=== PATIENT | female | born 1985 | race Caucasian/White ===

== ENCOUNTER 2019-06-24 12:16 | Emergency (ER) | payer OTHER ==
[2019-06-24] MEDS ORDERED: dexAMETHasone 10 MG/ML VIAL ONE (13:01)
[2019-06-24] MEDS ORDERED: MORPHINE 4 MG/ML SYR ONE (13:02)
[2019-06-24] MEDS ORDERED: ONDANSETRON 4 MG/2 ML VIAL ONE (13:02)
[2019-06-24 13:16] LABS: Absolute Lymphocytes (CBC) 2.2 K/uL (0.7-4.9); Basophils % 0.5 % (0-1.3); Hematocrit 39.8 % (36.0-45.0); Lymphocytes % 29.5 % (15.3-44.8); MPV 7.4 fL (7.6-11.3); RBC Red Blood Cell Count 4.73 M/uL (3.86-4.86)
[2019-06-24 13:23] LABS: Potassium 3.9 mmol/L (3.5-5.1)
[2019-06-24] MEDS ORDERED: MEPERIDINE HCL 25 MG/0.5 ML ONE (13:50)
--- NOTE | 2019-06-24 16:17 | ER ---
Nurse's Notes [facility] Name: Jackie Ashley Age: 33 yrs Sex: Female : 1985 Arrival Date: 06/24/2019 Time: 12:29 Bed 23 Private MD: Diagnosis: Radiculopathy, cervical region Presentation: 06/24 12:40 Presenting complaint: Patient states: Right shoulder pain that started 2 weeks ago on wh and off. Pt states she has Hx of C4, C5, and C6 narrowing. Pt states pain is 10/10 on a pain scale. Transition of care: patient was not received from another setting of care. Onset of symptoms was June 24, 2019. Risk Assessment: Do you want to hurt yourself or someone else? Patient reports no desire to harm self or others. Initial Sepsis Screen: Does the patient meet any 2 criteria? No. Patient's initial sepsis screen is negative. Does the patient have a suspected source of infection? No. Patient's initial sepsis screen is negative. Care prior to arrival: None. 12:40 Method Of Arrival: EMS: [facility] 12:40 Acuity: ANITHA 3 Triage Assessment: 12:52 General: Appears in no apparent distress. uncomfortable. General: Behavior is calm, wh cooperative, appropriate for age. Pain: Complains of pain in Right shoulder Pain does not radiate. Pain currently is 10 out of 10 on a pain scale. Quality of pain is described as burning, Pain began On and off for 2 weeks. 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 - Social history:: Smoking status: Patient/guardian denies using tobacco. - Ebola Screening: : Patient negative for fever greater than or equal to 101.5 degrees Fahrenheit, and additional compatible Ebola Virus Disease symptoms Patient denies exposure to infectious person. - Family history:: not pertinent. - Hospitalizations: : No recent hospitalization is reported. Screenin:42 Abuse screen: Denies threats or abuse. Denies injuries from another. Nutritional screening: No deficits noted. Tuberculosis screening: No symptoms or risk factors identified. Fall Risk None identified. Assessment: 12:54 General: Appears in no apparent distress. uncomfortable, Behavior is calm, cooperative, wh appropriate for age. Neuro: Level of Consciousness is awake, alert, obeys commands. Cardiovascular: Heart tones S1 S2. Respiratory: Airway is patent Respiratory effort is even, unlabored, Respiratory pattern is regular, symmetrical, Breath sounds are clear bilaterally. GI: Abdomen is flat, non-distended. : No signs and/or symptoms were reported regarding the genitourinary system. EENT: No signs and/or symptoms were reported regarding the EENT system. Derm: Skin is intact, is healthy with good turgor, Skin is pink, warm \T\ dry. normal. Musculoskeletal: Circulation, motion, and sensation intact. 13:56 Reassessment: Patient appears in no apparent distress at this time. No changes from previously documented assessment. Patient and/or family updated on plan of care and expected duration. Pain level reassessed. Patient is alert, oriented x 3, equal unlabored respirations, skin warm/dry/pink. 15:10 Reassessment: Patient appears in no apparent distress at this time. No changes from wh previously documented assessment. Patient and/or family updated on plan of care and expected duration. Pain level reassessed. Patient is alert, oriented x 3, equal unlabored respirations, skin warm/dry/pink. Patient states feeling better. Patient states symptoms have improved. 16:34 Reassessment: Patient appears in no apparent distress at this time. No changes from previously documented assessment. Patient and/or family updated on plan of care and expected duration. Pain level reassessed. Patient is alert, oriented x 3, equal unlabored respirations, skin warm/dry/pink. Patient states feeling better. Patient states symptoms have improved. Vital Signs: 12:43 BP 156 / 119; Pulse 117; Resp 18; Temp 98.5; Pulse Ox 100% ; wh 13:45 BP 146 / 122; Pulse 133; Resp 18; Pulse Ox 98% on R/A; wh 14:45 BP 139 / 107; Pulse 118; Resp 18; Pulse Ox 96% on R/A; wh 16:30 BP 129 / 118; Pulse 110; Resp 18; Pulse Ox 94% on R/A; ED Course: 12:29 Patient arrived in ED. rn 12:29 Keith Grey MD is Attending Physician. rn 12:31 David June is Primary Nurse. 12:42 Triage completed. 12:54 Arm band placed on left wrist. 12:55 Initial lab(s) drawn, by me, sent to lab. Inserted saline lock: 22 gauge in left tm3 antecubital area, using aseptic technique. 12:57 Patient has correct armband on for positive identification. Bed in low position. Call light in reach. Side rails up X 1. Pulse ox on. NIBP on. 13:31 EKG done, by field technical assistant. reviewed by Keith Grey MD. at1 16:34 No provider procedures requiring assistance completed. IV discontinued, intact, bleeding controlled, No redness/swelling at site. Administered Medications: 13:09 Drug: Decadron - Dexamethasone 10 mg Route: IVP; Site: left antecubital; 16:36 Follow up: Response: No adverse reaction 13:09 Drug: morphine 4 mg Route: IVP; Site: left antecubital; 16:36 Follow up: Response: No adverse reaction 16:36 Follow up: Response: No adverse reaction; Pain is decreased; RASS: Alert and Calm (0) 13:09 Drug: Zofran 4 mg Route: IVP; Site: left antecubital; 16:36 Follow up: Response: No adverse reaction 13:52 Drug: Demerol 25 mg Route: IVP; Site: left antecubital; 16:37 Follow up: Response: No adverse reaction; Pain is decreased; RASS: Alert and Calm (0) Outcome: 16:16 Discharge ordered by . rn 16:35 Discharged to home ambulatory, with family. 16:35 Condition: good 16:35 Discharge instructions given to patient, Instructed on discharge instructions, follow up and referral plans. no drinking with medication, no driving heavy equipment, medication usage, POC Cervical Radiculopathy Demonstrated understanding of instructions, follow-up care, medications, POC Prescriptions given X 3. 16:38 Patient left the ED. Signatures: Mohit Caputo tm3 Keith Grey MD MD rn Gonzales, Amanda, automotive professional EKG Tat1 David June
--- NOTE | 2019-06-24 16:18 | EDPHYS ---
Physician Documentation [facility] Name: Jackie Ashley Age: 33 yrs Sex: Female : 1985 Arrival Date: 06/24/2019 Time: 12:29 Bed 23 Private MD: ED Physician Keith Grey HPI: 06/24 12:56 This 33 yrs old Other Female presents to ER via EMS with complaints of arm pain. rn 12:57 The patient or guardian complains of pain. right shoulder and right trapezius. rn 12:57 Onset: The symptoms/episode began/occurred 2 week(s) ago. Modifying factors: the rn symptoms are alleviated by nothing. The symptoms are aggravated by movement. Severity of symptoms: At their worst the symptoms were moderate, in the emergency department the symptoms are unchanged. The patient has experienced similar episodes in the past. Reports has known cervical spine problems, has been recommended to have surgery, has declined, also has RA. Reports right shoulder pain intermittent for 2 weeks, worse when turning head certain directions. Has had this before. NO chest pain/sob/abd pain. No weakness.. 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 - Social history:: Smoking status: Patient/guardian denies using tobacco. - Ebola Screening: : Patient negative for fever greater than or equal to 101.5 degrees Fahrenheit, and additional compatible Ebola Virus Disease symptoms Patient denies exposure to infectious person. - Family history:: not pertinent. - Hospitalizations: : No recent hospitalization is reported. ROS: 12:57 Constitutional: Negative for fever, chills, and weight loss, Eyes: Negative for injury, rn pain, redness, and discharge, Neck: Negative for injury, and swelling, Cardiovascular: Negative for chest pain, palpitations, and edema, Respiratory: Negative for shortness of breath, cough, wheezing, and pleuritic chest pain, Abdomen/GI: Negative for abdominal pain, nausea, vomiting, diarrhea, and constipation, MS/Extremity: + right arm and shoulder pain Skin: Negative for injury, rash, and discoloration, Neuro: Negative for headache, weakness, numbness, tingling, and seizure. Exam: 12:59 Constitutional: This is a well developed, well nourished patient who is awake, alert, rn appears uncomfortable Head/Face: Normocephalic, atraumatic. Eyes: Pupils equal round and reactive to light, extra-ocular motions intact. Lids and lashes normal. Conjunctiva and sclera are non-icteric and not injected. Cornea within normal limits. Periorbital areas with no swelling, redness, or edema. ENT: MMM Neck: No swelling or edema, no masses, + some pain with ROM Cardiovascular: Tachycardic, regular, equal pulses in all extremities Respiratory: Lungs have equal breath sounds bilaterally, clear to auscultation. No increased work of breathing, no retractions or nasal flaring. Abdomen/GI: soft, non-tender MS/ Extremity: Pulses equal, no cyanosis. Neurovascular intact. Full, normal range of motion. Equal circumference. Neuro: Awake and alert, GCS 15, oriented to person, place, time, and situation. Cranial nerves II-XII grossly intact. Motor strength 5/5 in all extremities. Sensory grossly intact. Vital Signs: 12:43 BP 156 / 119; Pulse 117; Resp 18; Temp 98.5; Pulse Ox 100% ; wh 13:45 BP 146 / 122; Pulse 133; Resp 18; Pulse Ox 98% on R/A; wh 14:45 BP 139 / 107; Pulse 118; Resp 18; Pulse Ox 96% on R/A; wh 16:30 BP 129 / 118; Pulse 110; Resp 18; Pulse Ox 94% on R/A; wh MDM: 12:29 Patient medically screened. rn 16:13 Differential diagnosis: radiculopathy, muscle spasm. Data reviewed: vital signs, nurses rn notes, diagnostic data from outside facility, MRI, lab test result(s), and as a result, I will discharge patient. Counseling: I had a detailed discussion with the patient and/or guardian regarding: the historical points, exam findings, and any diagnostic results supporting the discharge/admit diagnosis, lab results, radiology results, the need for outpatient follow up, to return to the emergency department if symptoms worsen or persist or if there are any questions or concerns that arise at home. Response to treatment: the patient's symptoms have markedly improved after treatment, and as a result, I will discharge patient. Special discussion: I discussed with the patient/guardian in detail that at this point there is no indication for admission to the hospital. It is understood, however, that if the symptoms persist or worsen the patient needs to return immediately for re-evaluation. Based on the history and exam findings, there is no indication for further emergent testing or inpatient evaluation. I discussed with the patient/guardian the need to see the orthopedic surgeon for further evaluation of the symptoms. I discussed with the patient/guardian the need to see the primary care provider for further evaluation of the symptoms. ED course: Patient improved, now 2/10 pain, states this has been ongoing, slowly worsening, no weakness, has had shots for this and seen neurosurgery and PT. Will dc home, return precautions given and understood. . 06/24 12:33 Order name: CBC with Diff; Complete Time: 13:41 rn 06/24 12:33 Order name: Basic Metabolic Panel; Complete Time: 13:41 rn 06/24 12:33 Order name: IV Start; Complete Time: 12:51 rn 06/24 12:57 Order name: EKG; Complete Time: 12:58 rn 06/24 12:57 Order name: EKG - Nurse/Tech; Complete Time: 13:21 rn Administered Medications: 13:09 Drug: Decadron - Dexamethasone 10 mg Route: IVP; Site: left antecubital; 16:36 Follow up: Response: No adverse reaction 13:09 Drug: morphine 4 mg Route: IVP; Site: left antecubital; 16:36 Follow up: Response: No adverse reaction 16:36 Follow up: Response: No adverse reaction; Pain is decreased; RASS: Alert and Calm (0) 13:09 Drug: Zofran 4 mg Route: IVP; Site: left antecubital; 16:36 Follow up: Response: No adverse reaction 13:52 Drug: Demerol 25 mg Route: IVP; Site: left antecubital; 16:37 Follow up: Response: No adverse reaction; Pain is decreased; RASS: Alert and Calm (0) Disposition: 06/24/19 16:16 Discharged to Home. Impression: Radiculopathy, cervical region. - Condition is Stable. - Discharge Instructions: Cervical Radiculopathy. - Prescriptions for Tylenol- Codeine #3 300-30 mg Oral Tablet - take 2 tablets by ORAL route every 6 hours As needed; 20 tablet. Cyclobenzaprine 10 mg Oral Tablet - take 1 tablet by ORAL route every 8 hours As needed; 20 tablet. Medrol (Dinesh) 4 mg Oral Tablets, Dose Pack - take 1 tablet by ORAL route as directed - follow package instructions; 1 packet. - Medication Reconciliation Form, Thank You Letter, Antibiotic Education, Prescription Opioid Use form. - Follow up: Private Physician; When: As needed; Reason: Recheck today's complaints, Re-evaluation by your physician. - Problem is new. - Symptoms have improved. 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 [employer] EDMS Keith Grey MD MD rn Habalo, Winsy Corrections: (The following items were deleted from the chart) 13:00 12:57 Constitutional: Negative for fever, chills, and weight loss, Eyes: Negative for rn injury, pain, redness, and discharge, Neck: Negative for injury, and swelling, Cardiovascular: Negative for chest pain, palpitations, and edema, Respiratory: Negative for shortness of breath, cough, wheezing, and pleuritic chest pain, Abdomen/GI: Negative for abdominal pain, nausea, vomiting, diarrhea, and constipation, MS/Extremity: + right arm and shoulder pain Skin: Negative for injury, rash, and discoloration, Neuro: Negative for headache, weakness, numbness, tingling, and seizure, rn 16:38 16:16 06/24/2019 16:16 Discharged to Home. Impression: Radiculopathy, cervical region. Condition is Stable. Forms are Medication Reconciliation Form, Thank You Letter, Antibiotic Education, Prescription Opioid Use. Follow up: Private Physician; When: As needed; Reason: Recheck today's complaints, Re-evaluation by your physician. Problem is new. Symptoms have improved. rn
[2019-06-24 17:09] VITALS: BP 131/80; TEMP 98; O2SAT 100
--- NOTE | 2019-06-24 20:19 | EKG ---
Test Date: 2019-06-24 Test Time: 13:25:21 First Officer: BERT MEASUREMENT RESULTS: Intervals: Rate: 130 IA: 154 QRSD: 76 QT: 290 QTc: 426 Lyons: P: 85 IA: 154 QRS: 86 T: 81 INTERPRETIVE STATEMENTS: Sinus tachycardia Right atrial enlargement Borderline ECG No previous ECG available for comparison Electronically Signed On 06-24-19 20:18:17 CDT by Markus Perdomo
== END 2019-06-24 16:38 | disposition home or self-care (01) ==
LOC: ER 12:16
DX: M54.12 Radiculopathy, cervical region (principal)
CPT/HCPCS: 93005; 85025; 80048; 36415; 96375; 96374; 99284; J1100; J2175; J2405

== ENCOUNTER 2019-07-01 14:42 | Emergency (ER) | payer OTHER ==
[2019-07-01] MEDS ORDERED: ONDANSETRON 4 MG/2 ML VIAL ONE ×2 (14:54→19:49)
[2019-07-01] MEDS ORDERED: MORPHINE 4 MG/ML SYR ONE ×2 (14:54→15:32)
[2019-07-01] MEDS ORDERED: DIAZEPAM 10 MG/2 ML INJ SYRINGE ONE (14:58)
[2019-07-01 15:16] LABS: Absolute Lymphocytes (CBC) 2.8 K/uL (0.7-4.9); Basophils % 0.3 % (0-1.3); Hematocrit 41.4 % (36.0-45.0); Lymphocytes % 22.5 % (15.3-44.8); MPV 7.3 fL (7.6-11.3); RBC Red Blood Cell Count 4.84 M/uL (3.86-4.86)
[2019-07-01 15:27] LABS: Potassium 3.5 mmol/L (3.5-5.1)
--- NOTE | 2019-07-01 15:48 | RAD REPORT ---
EXAM DESCRIPTION: RAD - Shoulder Right 2 View - 07/01/2019 3:37 pm CLINICAL HISTORY: Right shoulder pain FINDINGS: No fracture or dislocation is seen. No significant bone or joint abnormality noted
[2019-07-01] MEDS ORDERED: NA CHLORIDE 0.9% 1,000 ML ONE (16:07)
--- NOTE | 2019-07-01 18:38 | RAD REPORT ---
EXAM DESCRIPTION: MRI - C Spine Wo Cont - 07/01/2019 6:09 pm CLINICAL HISTORY: Radiculopathy and neck pain COMPARISON: None TECHNIQUE: Magnetic resonance imaging of the cervical spine was obtained with coronal and sagittal r econstruction FINDINGS: Mild spondylosis C2-3 Disc bulge and osteophytes C3-4 mildly encroach upon the thecal sac. Mild to moderate narrowing of th e left and mild narrowing of the right neural foramina Disc bulge osteophytes C4-5 mildly encroach upon the thecal sac. Moderate narrowing of the neural for adarsh bilaterally. A small right posterolateral disc osteophyte complex Disc bulge and osteophytes C5-6. Marked narrowing of the left and mild to moderate narrowing the righ t neural foramina. A small left posterolateral disc osteophyte complex Disc bulge and osteophytes at C6-7 results in mild to moderate narrowing of the right neural foramina C7-T1 unremarkable The spinal cord is normal caliber and signal. No abnormal signal within the bones is noted. IMPRESSION: Spondylosis in combination with small left posterolateral disc osteophyte complex C5-6 resulting in marked left foraminal stenosis Spondylosis in combination with a small right posterolateral disc osteophyte complex C4-5 resulting i n moderate bilateral foraminal stenosis
[2019-07-01] MEDS ORDERED: HYDROCODONE/APAP 10/325 TAB ONE (18:41)
--- NOTE | 2019-07-01 19:45 | ER ---
Nurse's Notes [facility] Name: Jackie Ashley Age: 33 yrs Sex: Female : 1985 Arrival Date: 07/01/2019 Time: 14:44 Bed 30 Private MD: Diagnosis: Radiculopathy, cervical region;Strain of muscle, fascia and tendon at neck level Presentation: 07/01 14:38 Presenting complaint: EMS states: pt was at the [place] [facility] for psychiatric help and then sv started c/o neck/arm, chest pain, right facial numbness since Thursday, generalized weakness since Thursday. BP 233/133 HR 160s. Last BP 159/115 EKG-140. [facility]. Onset of symptoms was July 01, 2019. Risk Assessment: Do you want to hurt yourself or someone else? Patient reports no desire to harm self or others. Initial Sepsis Screen: Does the patient meet any 2 criteria? HR > 90 bpm. No. Patient's initial sepsis screen is negative. Does the patient have a suspected source of infection? No. Patient's initial sepsis screen is negative. Care prior to arrival: Medication(s) given: Toradol 60 mg, Kenalog 40 mg, Solumedrol 125 mg IM given. 14:38 Method Of Arrival: EMS: [facility] sv 14:44 Acuity: ANITHA 2 sv Triage Assessment: 14:40 General: Appears distressed, uncomfortable, well developed, Behavior is cooperative, sv anxious. Pain: Complains of pain in back of neck, face and right arm and right shoulder Pain currently is 10 out of 10 on a pain scale. Neuro: Level of Consciousness is awake, alert, obeys commands, Oriented to person, place, time, situation, Moves all extremities. Full function Speech is normal, Facial symmetry appears normal, Reports headache in entire numbness in right zygomatic area and right cheek since Thursday. Cardiovascular: Patient's skin is warm and dry. Pulses are 3+ in right radial artery and left radial artery Rhythm is sinus tachycardia. Respiratory: Airway is patent Respiratory effort is even, unlabored, Respiratory pattern is symmetrical, tachypnea. Derm: Skin is intact, Skin is pink, warm \T\ dry. Musculoskeletal: Range of motion: limited in right shoulder. 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 - Social history:: Smoking status: unknown. - Ebola Screening: : Patient denies travel to an Ebola-affected area in the 21 days before illness onset No symptoms or risks identified at this time. Screenin:55 Abuse screen: Denies threats or abuse. Denies injuries from another. Nutritional sv screening: No deficits noted. Tuberculosis screening: No symptoms or risk factors identified. Fall Risk None identified. Assessment: 15:40 Reassessment: Pt able to get herself up off the bed and ambulate to the bathroom sv slowly, no walking difficulty noted. 15:54 Reassessment: Patient appears in no apparent distress at this time. No changes from sv previously documented assessment. Patient and/or family updated on plan of care and expected duration. Pain level reassessed. Patient is alert, oriented x 3, equal unlabored respirations, skin warm/dry/pink. 16:25 Reassessment: Patient appears in no apparent distress at this time. No changes from sv previously documented assessment. Patient and/or family updated on plan of care and expected duration. Pain level reassessed. Patient is alert, oriented x 3, equal unlabored respirations, skin warm/dry/pink. 17:16 Reassessment: Patient appears in no apparent distress at this time. Patient and/or sv family updated on plan of care and expected duration. Pain level reassessed. Patient is alert, oriented x 3, equal unlabored respirations, skin warm/dry/pink. Spouse at the bedside. 19:00 Reassessment: PATIENT IS IN A LOT OF PAIN. REFERRED TO DR LIU. rv 21:00 Reassessment: Patient appears in no apparent distress at this time. Patient and/or rv family updated on plan of care and expected duration. Pain level reassessed. Patient is alert, oriented x 3, equal unlabored respirations, skin warm/dry/pink. AFTER GIVING PAIN MEDICINE, PATIENT IS MORE COMFORTABLE AND BLOOD PRESSURE HAS DECREASED TO A MORE ACCEPTABLE RANGE. 07/02 00:00 Reassessment: Patient appears in no apparent distress at this time. PATIENT STARTING TO rv HAVE PAINS AGAIN. REFERRED TO DR LIU. GIVEN SECOND DOSE OF MORPHINE. UPDATED ON THE PLAN OF CARE AND LENGTH OF WAIT FOR TRANSFER. 01:03 Reassessment: STILL AWAITING TRANSFER TO [place]. rv 01:10 Reassessment: Patient appears in no apparent distress at this time. Patient and/or cc3 family updated on plan of care and expected duration. Pain level reassessed. Patient is alert, oriented x 3, equal unlabored respirations, skin warm/dry/pink. Received this female patient from [facility] as a case of radiculopathy cervical region awaiting acceptance from [place] for transfer. With IV cannula gauge 20 at the left ACV saline locked. 02:20 Reassessment: Patient appears in no apparent distress at this time. Patient and/or cc3 family updated on plan of care and expected duration. Pain level reassessed. Patient is alert, oriented x 3, equal unlabored respirations, skin warm/dry/pink. Patient for transfer to [place], report called and handed over to IDRIS Villarreal. ED junior accounting clerk Zane to call EMS for transport. 02:49 Reassessment: Patient came back from CT scan department by wheelchair, awaiting report. cc3 03:14 Reassessment: Patient appears in no apparent distress at this time. Patient and/or cc3 family updated on plan of care and expected duration. Pain level reassessed. Patient is alert, oriented x 3, equal unlabored respirations, skin warm/dry/pink. Called IDRIS Villarreal of [place] ER and updated her with the newly ordered medications given to patient. 04:00 Reassessment: Patient appears in no apparent distress at this time. Patient and/or cc3 family updated on plan of care and expected duration. Pain level reassessed. Patient is alert, oriented x 3, equal unlabored respirations, skin warm/dry/pink. Patient denies pain at this time. Patient states feeling better. Patient states symptoms have improved. 04:50 Reassessment: Patient appears in no apparent distress at this time. Patient and/or cc3 family updated on plan of care and expected duration. Pain level reassessed. Patient is alert, oriented x 3, equal unlabored respirations, skin warm/dry/pink. [facility] came for patient transport. Patient left ER vitally stable by EMS stretcher. No valuables left in the patient's room. Patient states feeling better. Patient states symptoms have improved. Vital Signs: 07/01 14:52 BP 162 / 102; Pulse 135 MON; Resp 27 S; Pulse Ox 100% on R/A; sg 14:55 Temp 98; sv 15:23 BP 170 / 130; Pulse 124; Resp 30; Pulse Ox 99% on R/A; sv 15:49 BP 183 / 151; Pulse 137 MON; Resp 30; Pulse Ox 99% on R/A; sv 16:25 BP 127 / 74; Pulse 129; Resp 18; Pulse Ox 100% on R/A; sv 17:13 BP 140 / 118; Pulse 122; Resp 16; Pulse Ox 100% on R/A; sv 18:31 BP 183 / 143; Pulse 113; Resp 18; Pulse Ox 100% on R/A; rv 21:00 BP 132 / 90; Pulse 113; Resp 17; Pulse Ox 98% on R/A; rv 22:00 BP 138 / 101; Pulse 110; Resp 16; Pulse Ox 100% on R/A; rv 23:00 BP 136 / 96; Pulse 121; Resp 18; Pulse Ox 100% on R/A; rv 07/02 00:00 BP 133 / 99; Pulse 118; Resp 15; Pulse Ox 100% on R/A; rv 01:00 BP 154 / 107; Pulse 119; Resp 15; Pulse Ox 100% ; rv 01:30 BP 149 / 100; Pulse 113; Resp 18 S; Pulse Ox 98% on R/A; cc3 02:20 BP 149 / 107; Pulse 119; Resp 16 S; Temp 97.7(O); Pulse Ox 100% on R/A; cc3 02:49 BP 135 / 105; Pulse 124; Resp 16 S; Pulse Ox 100% on R/A; cc3 03:08 BP 136 / 104; Pulse 97; Resp 16 S; Pulse Ox 100% on R/A; cc3 03:30 BP 134 / 96; Pulse 101; Resp 17 S; Pulse Ox 99% on R/A; cc3 03:50 BP 128 / 102; Pulse 95; Resp 16 S; Pulse Ox 100% on R/A; cc3 03:55 BP 127 / 92; Pulse 92; Resp 16 S; Pulse Ox 100% on R/A; cc3 04:00 BP 119 / 90; Pulse 86; Resp 14 S; Pulse Ox 99% on R/A; Pain 2/10; cc3 04:30 BP 124 / 101; Pulse 85; Resp 19 S; Pulse Ox 100% on R/A; cc3 15:49 Sinus tachycardia sv ED Course: 07/01 14:44 Patient arrived in ED. sv 14:44 Trini Marcelo RN is Primary Nurse. sv 14:45 Triage completed. sv 14:48 Jordin Mak MD is Attending Physician. kdr 14:50 Inserted saline lock: 20 gauge in left antecubital area, using aseptic technique. Blood sv collected. Flushed left antecubital with 5 ml normal saline. 14:50 Arm band placed on. sv 14:55 Patient has correct armband on for positive identification. Placed in gown. Bed in low sv position. Call light in reach. Side rails up X2. drywall taper on. Pulse ox on. NIBP on. Door closed. Head of bed elevated. 15:01 Chem 7 Sent. sv 15:01 CBC with Diff Sent. sv 15:38 Shoulder Right (2 View) XRAY In Process Unspecified. EDMS 15:49 EKG done, by earth science technical officer. reviewed by Jordin Mak MD. sm3 17:[address] Scan. sv 17:57 C Spine Wo Cont In Process Unspecified. EDMS 19:24 Primary Nurse role handed off by Trini Marcelo RN sv 19:31 Attending Physician role handed off by Jordin Mak MD dona 19:31 Alexei Liu MD is Attending Physician. dona 19:46 Aj Arnold RN is Primary Nurse. rv 20:46 XRAY Chest (1 view) In Process Unspecified. EDMS 07/02 01:10 Report given to AAYUSH JOSEPH. rv 02:20 No provider procedures requiring assistance completed. Patient transferred, IV remains cc3 in place. 03:02 CT Chest For PE Angio In Process Unspecified. EDMS Administered Medications: 07/01 14:55 Drug: Zofran 4 mg Route: IVP; Site: left antecubital; hb 15:35 Follow up: Response: No adverse reaction sv 14:56 Drug: morphine 4 mg Route: IVP; Site: left antecubital; hb 15:35 Follow up: Response: No adverse reaction; No change in condition; RASS: Very agitated sv (+3) 15:01 Drug: Valium 5 mg Route: IVP; Site: left antecubital; sv 15:35 Follow up: Response: No adverse reaction sv 15:35 Drug: morphine 4 mg {Note: RASS3.} Route: IVP; Site: left antecubital; sv 16:24 Follow up: Response: No adverse reaction; RASS: Restless (+1) sv 16:13 Drug: NS 0.9% 1000 ml Route: IV; Rate: 1 bolus; Site: left antecubital; sv 17:45 Follow up: Response: No adverse reaction; IV Status: Completed infusion; IV Intake: sv 1000ml 16:25 CANCELLED (Duplicate Order): NS 0.9% 1000 ml IV at 1 bolus Per protocol; 1000 mL bolus sv 18:43 Drug: [place] 10 mg-325 mg 1 tabs {Note: RASS 0.} Route: PO; rv 19:53 Drug: Decadron - Dexamethasone 10 mg Route: IVP; Site: left antecubital; rv 21:20 Follow up: Response: Marked relief of symptoms; Pain is decreased rv 19:53 Drug: Ativan 1 mg Route: IVP; Site: left antecubital; rv 21:21 Follow up: Response: No adverse reaction; Marked relief of symptoms; Pain is decreased rv 19:53 Drug: morphine 2 mg Route: IVP; Site: left antecubital; rv 21:21 Follow up: Response: No adverse reaction; Marked relief of symptoms; Pain is decreased; rv RASS: Alert and Calm (0) 19:54 Drug: Zofran 4 mg Route: IVP; Site: left antecubital; rv 21:21 Follow up: Response: No adverse reaction; Marked relief of symptoms; Pain is decreased rv 23:51 Drug: morphine 2 mg {Note: RASS 0.} Route: IVP; Site: left antecubital; rv 07/02 02:00 Drug: morphine 2 mg Route: IVP; Site: left antecubital; cc3 02:30 Follow up: Response: No adverse reaction; Pain is unchanged, physician notified cc3 02:50 Drug: Lopressor (metoprolol TARTRATE) 50 mg Route: PO; cc3 04:00 Follow up: Response: No adverse reaction cc3 02:50 Drug: NS 0.9% 1000 ml Route: IV; Rate: 125 ml/hr; Site: left antecubital; cc3 03:35 Follow up: IV Status: Infusion continued upon transfer cc3 02:55 Drug: Lopressor 5 mg Route: IVP; Site: left antecubital; cc3 04:00 Follow up: Response: No adverse reaction; Marked relief of symptoms cc3 02:58 Drug: Dilaudid 0.5 mg Route: IVP; Site: left antecubital; cc3 03:40 Follow up: Response: No adverse reaction; Pain is unchanged, physician notified cc3 03:03 Drug: Zofran 4 mg Route: IVP; Site: left antecubital; cc3 04:00 Follow up: Response: No adverse reaction; Nausea is decreased cc3 03:45 Drug: Dilaudid 0.5 mg {Note: RASS 0.} Route: IVP; Site: left antecubital; cc3 04:00 Follow up: Response: No adverse reaction; Pain is decreased; RASS: Alert and Calm (0) cc3 03:50 Drug: Lopressor 2.5 mg Route: IVP; Site: left antecubital; cc3 04:00 Follow up: Response: No adverse reaction; Blood pressure is lowered cc3 03:55 Drug: Lopressor 2.5 mg Route: IVP; Site: left antecubital; cc3 04:00 Follow up: Response: No adverse reaction; Blood pressure is lowered cc3 04:35 Drug: Aspirin 81 mg Route: PO; cc3 04:46 Follow up: Response: No adverse reaction cc3 Intake: 07/01 17:45 IV: 1000ml; Total: 1000ml. sv Outcome: 19:44 ER care complete, transfer ordered by MD. carcamo 07/02 02:20 Transferred by ground EMS to [facility] Transfer form completed. cc3 Condition: stable Instructed on the need for transfer, Demonstrated understanding of instructions. 05:04 Patient left the ED. cc3 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 [employer] Trini Carbone RN RN sv Gay, Steven, RN RN sg Anderson, Corey, MD MD cha Rittger, Kevin, MD MD kdr Baxter, Heather, RN RN hb Montes, Shakira [facility] Aj Arnold RN RN rv Cordel, Charlene cc3 Corrections: (The following items were deleted from the chart) 07/01 19:28 17:13 Pulse 122bpm; Resp 16bpm; Pulse Ox 100% RA; sv sv 07/02 05:09 04:50 Reassessment: [facility] came for patient transport. cc3 cc3
--- NOTE | 2019-07-01 19:45 | EDPHYS ---
Physician Documentation [facility] Name: Jackie Ashley Age: 33 yrs Sex: Female : 1985 Arrival Date: 07/01/2019 Time: 14:44 Bed 30 Private MD: ED Physician Alexei Alcazar HPI: 07/01 19:01 This 33 yrs old Female presents to ER via EMS with complaints of Pain, kdr Tachycardia. 19:01 The patient or guardian complains of decreased range of motion, pain, that is acute. kdr right shoulder and right trapezius. Context: The problem was sustained. The patient has had intermittent and worsening pain in her neck for the past three years and [facility] Since Thursday, after being seen by her massage therapist, she has had right facial numbness and since Thursday last, she has had weakness in her right arm and altered sensation in her arm down to her 4/5 digits. She also has altered sensation on her left arm but more significant on her second and third digits. 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 - Social history:: Smoking status: unknown. - Ebola Screening: : Patient denies travel to an Ebola-affected area in the 21 days before illness onset No symptoms or risks identified at this time. ROS: 19:01 Constitutional: Negative for fever, chills, and weight loss, Eyes: Negative for injury, kdr pain, redness, and discharge, Neck: Negative for injury, pain, and swelling, Cardiovascular: Negative for chest pain, palpitations, and edema, Respiratory: Negative for shortness of breath, cough, wheezing, and pleuritic chest pain, Abdomen/GI: Negative for abdominal pain, nausea, vomiting, diarrhea, and constipation, Back: Negative for injury and pain, : Negative for injury, bleeding, discharge, and swelling, MS/Extremity: Negative for injury and deformity, Skin: Negative for injury, rash, and discoloration, Psych: Negative for depression, anxiety, suicide ideation, homicidal ideation, and hallucinations, Allergy/Immunology: Negative for hives, rash, and allergies, Endocrine: Negative for neck swelling, polydipsia, polyuria, polyphagia, and marked weight changes, Hematologic/Lymphatic: Negative for swollen nodes, abnormal bleeding, and unusual bruising. 19:01 Neuro: Positive for numbness, weakness. Exam: 19:01 Constitutional: This is a well developed, well nourished patient who is awake, alert, kdr and in severe distress. Head/Face: Normocephalic, atraumatic. Eyes: Pupils equal round and reactive to light, extra-ocular motions intact. Lids and lashes normal. Conjunctiva and sclera are non-icteric and not injected. Cornea within normal limits. Periorbital areas with no swelling, redness, or edema. Neck: Trachea midline, no thyromegaly or masses palpated, and no cervical lymphadenopathy. Supple, full range of motion without nuchal rigidity, or vertebral point tenderness. No Meningismus. Chest/axilla: Normal chest wall appearance and motion. Nontender with no deformity. No lesions are appreciated. Cardiovascular: Regular rate and rhythm with a normal S1 and S2. No gallops, murmurs, or rubs. Normal PMI, no JVD. No pulse deficits. Respiratory: Lungs have equal breath sounds bilaterally, clear to auscultation and percussion. No rales, rhonchi or wheezes noted. No increased work of breathing, no retractions or nasal flaring. Abdomen/GI: Soft, non-tender, with normal bowel sounds. No distension or tympany. No guarding or rebound. No evidence of tenderness throughout. Back: No spinal tenderness. No costovertebral tenderness. Full range of motion. Skin: Warm, dry with normal turgor. Normal color with no rashes, no lesions, and no evidence of cellulitis. Psych: Awake, alert, with orientation to person, place and time. Behavior, mood, and affect are within normal limits. 19:01 Musculoskeletal/extremity: ROM: intact in all extremities, The patient has weakness of abduction of the right upper extremity at the shoulder. She has numbness in the right 4/5 digits. Also, has numbness to index and middle finger on right . Vital Signs: 14:52 BP 162 / 102; Pulse 135 MON; Resp 27 S; Pulse Ox 100% on R/A; sg 14:55 Temp 98; sv 15:23 BP 170 / 130; Pulse 124; Resp 30; Pulse Ox 99% on R/A; sv 15:49 BP 183 / 151; Pulse 137 MON; Resp 30; Pulse Ox 99% on R/A; sv 16:25 BP 127 / 74; Pulse 129; Resp 18; Pulse Ox 100% on R/A; sv 17:13 BP 140 / 118; Pulse 122; Resp 16; Pulse Ox 100% on R/A; sv 18:31 BP 183 / 143; Pulse 113; Resp 18; Pulse Ox 100% on R/A; rv 21:00 BP 132 / 90; Pulse 113; Resp 17; Pulse Ox 98% on R/A; rv 22:00 BP 138 / 101; Pulse 110; Resp 16; Pulse Ox 100% on R/A; rv 23:00 BP 136 / 96; Pulse 121; Resp 18; Pulse Ox 100% on R/A; rv 07/02 00:00 BP 133 / 99; Pulse 118; Resp 15; Pulse Ox 100% on R/A; rv 01:00 BP 154 / 107; Pulse 119; Resp 15; Pulse Ox 100% ; rv 01:30 BP 149 / 100; Pulse 113; Resp 18 S; Pulse Ox 98% on R/A; cc3 02:20 BP 149 / 107; Pulse 119; Resp 16 S; Temp 97.7(O); Pulse Ox 100% on R/A; cc3 02:49 BP 135 / 105; Pulse 124; Resp 16 S; Pulse Ox 100% on R/A; cc3 03:08 BP 136 / 104; Pulse 97; Resp 16 S; Pulse Ox 100% on R/A; cc3 03:30 BP 134 / 96; Pulse 101; Resp 17 S; Pulse Ox 99% on R/A; cc3 03:50 BP 128 / 102; Pulse 95; Resp 16 S; Pulse Ox 100% on R/A; cc3 03:55 BP 127 / 92; Pulse 92; Resp 16 S; Pulse Ox 100% on R/A; cc3 04:00 BP 119 / 90; Pulse 86; Resp 14 S; Pulse Ox 99% on R/A; Pain 2/10; cc3 04:30 BP 124 / 101; Pulse 85; Resp 19 S; Pulse Ox 100% on R/A; cc3 15:49 Sinus tachycardia sv MDM: 07/01 19:31 Patient medically screened. dona 19:32 Data reviewed: vital signs, nurses notes, lab test result(s), radiologic studies, MRI. [facility] 07/01 14:50 Order name: CBC with Diff; Complete Time: 16:21 [facility] 07/01 14:50 Order name: Chem 7; Complete Time: 16:21 [facility] 07/01 19:43 Order name: Magnesium; Complete Time: 21:18 [facility] 07/01 19:43 Order name: NT PRO-BNP; Complete Time: 21:18 [facility] 07/01 19:43 Order name: PT-INR; Complete Time: 02:06 [facility] 07/01 19:43 Order name: Troponin (emerg Dept Use Only); Complete Time: 21:18 [facility] 07/01 14:50 Order name: Shoulder Right (2 View) XRAY; Complete Time: 16: [facility] 07/01 16:32 Order name: C Spine Wo Cont; Complete Time: 18:59 EDMS 07/01 19:43 Order name: XRAY Chest (1 view) [facility] 07/02 02:18 Order name: CT Chest For PE Angio [facility] 07/01 17:35 Order name: EKG Electrocardiogram; Complete Time: 17:35 EDKY 07/01 19:43 Order name: Cardiac monitoring; Complete Time: 19:54 [facility] 07/01 19:43 Order name: IV Saline Lock; Complete Time: 19:54 [facility] 07/01 19:43 Order name: Labs collected and sent; Complete Time: 19:54 [facility] 07/01 19:43 Order name: O2 Per Protocol; Complete Time: 19:54 [facility] 07/01 19:43 Order name: O2 Sat Monitoring; Complete Time: 19:54 [facility] 07/01 20:33 Order name: Labs - recollect needed; Complete Time: 21:19 [facility] 07/02 04:27 Order name: EKG; Complete Time: 04:28 [facility] 07/02 04:27 Order name: EKG - Nurse/Tech; Complete Time: 04:45 [facility] Administered Medications: 14:55 Drug: Zofran 4 mg Route: IVP; Site: left antecubital; hb 15:35 Follow up: Response: No adverse reaction sv 14:56 Drug: morphine 4 mg Route: IVP; Site: left antecubital; hb 15:35 Follow up: Response: No adverse reaction; No change in condition; RASS: Very agitated sv (+3) 15:01 Drug: Valium 5 mg Route: IVP; Site: left antecubital; sv 15:35 Follow up: Response: No adverse reaction sv 15:35 Drug: morphine 4 mg {Note: RASS3.} Route: IVP; Site: left antecubital; sv 16:24 Follow up: Response: No adverse reaction; RASS: Restless (+1) sv 16:13 Drug: NS 0.9% 1000 ml Route: IV; Rate: 1 bolus; Site: left antecubital; sv 17:45 Follow up: Response: No adverse reaction; IV Status: Completed infusion; IV Intake: sv 1000ml 16:25 CANCELLED (Duplicate Order): NS 0.9% 1000 ml IV at 1 bolus Per protocol; 1000 mL bolus sv 18:43 Drug: [place] 10 mg-325 mg 1 tabs {Note: RASS 0.} Route: PO; rv 19:53 Drug: Decadron - Dexamethasone 10 mg Route: IVP; Site: left antecubital; rv 21:20 Follow up: Response: Marked relief of symptoms; Pain is decreased rv 19:53 Drug: Ativan 1 mg Route: IVP; Site: left antecubital; rv 21:21 Follow up: Response: No adverse reaction; Marked relief of symptoms; Pain is decreased rv 19:53 Drug: morphine 2 mg Route: IVP; Site: left antecubital; rv 21:21 Follow up: Response: No adverse reaction; Marked relief of symptoms; Pain is decreased; rv RASS: Alert and Calm (0) 19:54 Drug: Zofran 4 mg Route: IVP; Site: left antecubital; rv 21:21 Follow up: Response: No adverse reaction; Marked relief of symptoms; Pain is decreased rv 23:51 Drug: morphine 2 mg {Note: RASS 0.} Route: IVP; Site: left antecubital; rv 07/02 02:00 Drug: morphine 2 mg Route: IVP; Site: left antecubital; cc3 02:30 Follow up: Response: No adverse reaction; Pain is unchanged, physician notified cc3 02:50 Drug: Lopressor (metoprolol TARTRATE) 50 mg Route: PO; cc3 04:00 Follow up: Response: No adverse reaction cc3 02:50 Drug: NS 0.9% 1000 ml Route: IV; Rate: 125 ml/hr; Site: left antecubital; cc3 03:35 Follow up: IV Status: Infusion continued upon transfer cc3 02:55 Drug: Lopressor 5 mg Route: IVP; Site: left antecubital; cc3 04:00 Follow up: Response: No adverse reaction; Marked relief of symptoms cc3 02:58 Drug: Dilaudid 0.5 mg Route: IVP; Site: left antecubital; cc3 03:40 Follow up: Response: No adverse reaction; Pain is unchanged, physician notified cc3 03:03 Drug: Zofran 4 mg Route: IVP; Site: left antecubital; cc3 04:00 Follow up: Response: No adverse reaction; Nausea is decreased cc3 03:45 Drug: Dilaudid 0.5 mg {Note: RASS 0.} Route: IVP; Site: left antecubital; cc3 04:00 Follow up: Response: No adverse reaction; Pain is decreased; RASS: Alert and Calm (0) cc3 03:50 Drug: Lopressor 2.5 mg Route: IVP; Site: left antecubital; cc3 04:00 Follow up: Response: No adverse reaction; Blood pressure is lowered cc3 03:55 Drug: Lopressor 2.5 mg Route: IVP; Site: left antecubital; cc3 04:00 Follow up: Response: No adverse reaction; Blood pressure is lowered cc3 04:35 Drug: Aspirin 81 mg Route: PO; cc3 04:46 Follow up: Response: No adverse reaction cc3 Disposition: 07/01/19 19:44 Transfer ordered to [facility]. Diagnosis are Radiculopathy, cervical region, Strain of muscle, fascia and tendon at neck level. - Reason for transfer: Higher level of care. - Accepting physician is ta , cervical radiculopathy. - Condition is Fair. - Problem is new. - Symptoms have improved. 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 [employer] Triin Carbone RN RN sv Gay, Steven, RN RN sg Anderson, Corey, MD MD cha Rittger, Kevin, MD MD kdr Martinez, Eric em1 Patience Howell RN RN hb Vicente, Ronaldo, RN RN rv Cordel, Charlene cc3 Corrections: (The following items were deleted from the chart) 09/20 16:25 16:23 NS 0.9% 1000 ml IV at 1 bolus Per protocol; 1000 mL bolus ordered. kdr sv : 19:43 EKG - Nurse/Tech ordered. dona rv 07/02 05:04 07/01 19:44 07/01/2019 19:44 Transfer ordered to [facility] [address] Diagnosis is Radiculopathy, cervical region; Strain of muscle, fascia and tendon at neck level. Reason for transfer: Higher level of care. Accepting physician is ta , cervical radiculopathy. Condition is Fair. Problem is new. Symptoms have improved. dona
[2019-07-01] MEDS ORDERED: MORPHINE 2 MG/ML SYR ONE ×2 (19:49→23:48)
[2019-07-01] MEDS ORDERED: LORazepam 2 MG/ML VIAL ONE (19:49)
[2019-07-01] MEDS ORDERED: dexAMETHasone 10 MG/ML VIAL ONE (19:49)
[2019-07-01 20:47] LABS: Magnesium 2.3 mg/dL (1.8-2.4); NT PRO-BNP 24 pg/mL (<125); Troponin (Emerg Dept Use Only) < 0.02 ng/mL (0.0-0.045)
[2019-07-01 21:29] LABS: Protime INR 0.91
[2019-07-02] MEDS ORDERED: MORPHINE 2 MG/ML SYR ONE (01:58)
[2019-07-02] MEDS ORDERED: METOPROLOL TAR 50 MG TAB ONE (02:45)
[2019-07-02] MEDS ORDERED: ONDANSETRON 4 MG/2 ML VIAL ONE (02:46)
[2019-07-02] MEDS ORDERED: HYDROMORPHONE HCL 0.5 MG/0.5 ML INJ ONE ×2 (02:46→03:43)
[2019-07-02] MEDS ORDERED: NA CHLORIDE 0.9% 1,000 ML ONE (02:47)
[2019-07-02] MEDS ORDERED: METOPROLOL TARTRATE 5 MG/5 ML INJ IV ONE ×2 (02:47→03:43)
[2019-07-02] MEDS ORDERED: ASPIRIN 81 MG CHEWABLE TABLET ONE (04:38)
[2019-07-02 06:07] VITALS: TEMP 97.7
[2019-07-02 06:17] VITALS: BP 124/101; O2SAT 100
--- NOTE | 2019-07-02 11:41 | RAD REPORT ---
EXAM DESCRIPTION: RAD - Chest Single View - 07/01/2019 8:49 pm CLINICAL HISTORY: COUGH Chest pain. COMPARISON: No comparisons FINDINGS: Portable technique limits examination quality. The lungs are grossly clear. The heart is normal in size. No displaced fractures. IMPRESSION: No acute intrathoracic process suspected.
--- NOTE | 2019-07-02 14:13 | EKG ---
Test Date: 2019-07-02 Test Time: 04:45:17 Telesales Manager: AER MEASUREMENT RESULTS: Intervals: Rate: 83 ID: [id number] QRSD: 76 QT: 396 QTc: 465 [place]: P: 65 ID: [id number] QRS: 54 T: 44 INTERPRETIVE STATEMENTS: Normal sinus rhythm Normal ECG Compared to ECG 07/01/2019 14:42:20 Sinus tachycardia no longer present Fusion complex(es) no longer present Myocardial infarct finding no longer present Electronically Signed On 07-02-19 14:13:16 CDT by Markus Perdomo
--- NOTE | 2019-07-02 14:17 | EKG ---
Test Date: 2019-07-01 Test Time: 14:42:20 Diamond Expert: LISANDRA MEASUREMENT RESULTS: Intervals: Rate: 153 [place]: 136 QRSD: 72 QT: 258 QTc: 411 [place]: P: 44 [place]: 136 QRS: 32 T: 51 INTERPRETIVE STATEMENTS: Sinus tachycardia with fusion complexes Septal infarct, age undetermined Abnormal ECG Compared to ECG 06/24/2019 13:25:21 Fusion complex(es) now present Myocardial infarct finding now present Atrial abnormality no longer present Electronically Signed On 07-02-19 14:13:43 CDT by Markus Perdomo
--- NOTE | 2019-07-04 11:18 | RAD REPORT ---
EXAM DESCRIPTION: Chest For Pe Angio CLINICAL HISTORY: Chest pain;Dyspnea COMPARISON: None. TECHNIQUE: CT CHEST ANGIOGRAPHY WITH IV CONTRAST on 07/02/2019 2:18 AM CDT. MIPS reconstructions were generated. This exam was performed according to our departmental dose-optimization program, which includes autom ated exposure control, adjustment of the mA and/or kV according to patient size and/or use of iterati ve reconstruction technique. MIP images were generated. FINDINGS: Thoracic aorta is normal in course and caliber without aneurysm or dissection. Pulmonary a rteries are adequately opacified without acute or chronic filling defects. The heart is normal in size. There is no pericardial effusion. Intrathoracic lymph nodes are not enla rged. There is no pleural effusion, pleural thickening or pneumothorax. Central airways are patent. Lungs a re clear with no consolidation, mass or interstitial lung disease. There are no acute abnormalities within the limited images of the upper abdomen. There are no acute osseous findings. No suspicious bony lesions. IMPRESSION: No aortic dissection or aneurysm. No pulmonary embolus. No pneumonia Electronically signed by: Maynor Mariee MD 07/02/2019 3:07 AM CDT Due to temporary technical issues with the PACS/Fluency reporting system, reports are being signed by the in house radiologist as a courtesy to ensure prompt reporting. The interpreting radiologist is f ully responsible for the content of the report.
== END 2019-07-02 05:04 ==
LOC: ER 14:42
DX: S16.1XXA Strain of muscle, fascia and tendon at neck level, initial encounter (principal); M54.12 Radiculopathy, cervical region; X58.XXXA Exposure to other specified factors, initial encounter
CPT/HCPCS: 96361; 93005 ×2; 85025; 80048; 36415; 83735; 85610; 84484; 83880; 71275; 71045; 73030; 72141; 96375; 96374; 99285; Q9967; J3360; J1100; J2270 ×3; J1170 ×2; J7030 ×2; J2405 ×3